=== PATIENT | female | born 1975 | race Caucasian/White ===

== ENCOUNTER 2016-12-29 09:56 | Emergency (ER) | payer MEDICARE, OTHER ==
[~2016-12-29] VITALS: Ht 167.6 cm; Wt 81.2 kg
[2016-12-29 10:28] VITALS: BP 102/65
[2016-12-29] MEDS ORDERED: DIPHTH,PERTUSS(ACELL),TET TOX 0.5 ML DISP.SYRIN. VAX IM ONE (11:00)
[2016-12-29] MEDS ORDERED: CLIN150C14 PO (11:04)
[2016-12-29] MEDS ORDERED: PRED50TA PO (11:04)
--- NOTE | 2016-12-29 11:05 | PHYS DOC ---
Past Medical History Past Medical History: Bipolar Additional Past Medical Histor: SEASONAL ALLERGIES Past Surgical History: Cholecystectomy, Hysterectomy Additional Past Surgical Histo: (R) KNEE, Alcohol Use: None Drug Use: None Adult General Chief Complaint Chief Complaint: INSECT BITE HPI HPI Patient is a 41 year old female who presents complaining of spider bite to the left upper arm. Patient states she got bit by a brown spider 3 days ago. Patient denies any fever. Tetanus is not up-to-date. Review of Systems Review of Systems Constitutional: Denies fever or chills [] Eyes: Denies change in visual acuity, redness, or eye pain [] HENT: Denies nasal congestion or sore throat [] Musculoskeletal: Denies back pain or joint pain [] Integument: Spider bite to the left upper extremity Neurologic: Denies headache, focal weakness or sensory changes [] Endocrine: Denies polyuria or polydipsia [] Allergies Allergies Allergies Coded Allergies Type Severity Reaction Last Updated Verified Iodinated Contrast Media - IV Dye Allergy Severe Anaphylaxis 01/08/16 No Sulfa (Sulfonamide Antibiotics) Allergy Intermediate Hives 01/08/16 No amoxicillin Allergy Intermediate Rash 01/08/16 No aspirin Allergy Intermediate Hives 01/08/16 No diphenhydramine Allergy Intermediate Hives 01/08/16 No codeine Allergy Mild Itching 01/08/16 No influenza virus vaccine, specific Allergy Mild Nausea 01/08/16 Yes ibuprofen Adverse Reaction Intermediate 01/08/16 No acetaminophen Adverse Reaction Mild 01/08/16 No Physical Exam Physical Exam Constitutional: Well developed, well nourished, no acute distress, non-toxic appearance. [] HENT: Normocephalic, atraumatic, bilateral external ears normal, oropharynx moist, no oral exudates, nose normal. [] Skin: Left upper extremity with an area of cellulitis approximately 3 x 2 cm. The area has a tiny bite obinna in the center. No drainage from the area. The area is warm and tender to touch but not fluctuant. Back: No tenderness, no CVA tenderness. [] Extremities: No tenderness, no cyanosis, no clubbing, ROM intact, no edema. [] Neurologic: Alert and oriented X 3, normal motor function, normal sensory function, no focal deficits noted. [] Psychologic: Affect normal, judgement normal, mood normal. [] Current Patient Data Vital Signs Vital Signs Date Time Temp Pulse Resp B/P (MAP) Pulse Ox O2 Delivery O2 Flow Rate FiO2 12/29/16 10:28 97.8 77 20 100 Room Air 97.8 EKG EKG [] Radiology/Procedures Radiology/Procedures [] Course & Med Decision Making Course & Med Decision Making Pertinent Labs and Imaging studies reviewed. (See chart for details) Patient has an insect bite to the left upper extremity. She believes it was a brown spider. The area has developed cellulitis. She has no fever. She'll be discharged with clindamycin, prednisone and Benadryl. She was instructed to keep the area clean and dry. Provided return precautions. Dragon Disclaimer Dragon Disclaimer This electronic medical record was generated, in whole or in part, using a voice recognition dictation system. Departure Departure Impression: Primary Impression: Cellulitis of left upper extremity Additional Impression: Spider bite Disposition: HOME, SELF-CARE Condition: STABLE Referrals: LEIDY LANGE (PCP) follow up with your doctor in 1-2 weeks Patient Instructions: Cellulitis, Spider Bite, [id number] Additional Instructions: You were seen with cellulitis of the left upper extremity from a possible spider bite. Keep the area clean and dry. Take the prescribed antibiotics until completed. You did receive a tetanus vaccine in the ED today. Come back to the ED symptoms worsen. Follow-up with your doctor in the next 7-14 days. Scripts Prednisone (PREDNISONE) 50 Mg Tablet 1 TAB PO DAILY, #5 TAB Prov: INDY GENAO APRN 12/29/16 Clindamycin Hcl (CLINDAMYCIN HCL) 150 Mg Capsule 3 CAP PO TID, #90 CAP Prov: INDY GENAO APRN 12/29/16 Problem Qualifiers Additional Impression: Spider bite Encounter type: initial encounter Injury intent: accidental or unintentional Qualified Codes: T63.301A - Toxic effect of unspecified spider venom, accidental (unintentional), initial encounter INDY GENOA APRN Dec 29, 2016 11:04
== END 2016-12-29 11:17 | disposition home or self-care (01) ==
LOC: ER 09:56
DX: L03.114 Cellulitis of left upper limb (principal); T63.301A Toxic effect of unspecified spider venom, accidental (unintentional), initial encounter; F31.9 Bipolar disorder, unspecified; Z90.49 Acquired absence of other specified parts of digestive tract; Z90.710 Acquired absence of both cervix and uterus; Z91.041 Radiographic dye allergy status; Z88.6 Allergy status to analgesic agent; Z88.2 Allergy status to sulfonamides; Z88.1 Allergy status to other antibiotic agents; Z88.8 Allergy status to other drugs, medicaments and biological substances; Z88.7 Allergy status to serum and vaccine; Y92.89 Other specified places as the place of occurrence of the external cause
CPT/HCPCS: 90471; 90715; 99283-25

== ENCOUNTER 2019-07-02 15:18 | Emergency (ER) | payer MEDICARE, MEDICAID ==
[~2019-07-02] VITALS: Ht 167.6 cm; Wt 81.2 kg
[~2019-07-02 15:18] MED LIST: CLIN150C14 PO; PRED50TA PO
[2019-07-02 16:00] VITALS: BP 121/84
[2019-07-02] MEDS ORDERED: ORPHENADRINE CITRATE 60 MG/2 ML VIAL. IM STA (16:23)
--- NOTE | 2019-07-02 16:28 | PHYS DOC ---
Past Medical History Past Medical History: Bipolar Additional Past Medical Histor: SEASONAL ALLERGIES Past Surgical History: Cholecystectomy, Hysterectomy Additional Past Surgical Histo: (R) KNEE, Alcohol Use: None Drug Use: None Adult General Chief Complaint Chief Complaint: BACK PAIN OR INJURY HPI HPI Patient is a 44 year old female who presents with back pain since last night. 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 She states she was working her back started hurting. Rates her pain as 8 out of 10 in severity. The patient states she is on a muscle relaxer at home. She is on baclofen. She states that she is immune to baclofen however. Review of Systems Review of Systems Constitutional: Denies fever or chills [] Eyes: Denies change in visual acuity, redness, or eye pain [] HENT: Denies nasal congestion or sore throat [] Respiratory: Denies cough or shortness of breath [] Cardiovascular: No additional information not addressed in HPI [] GI: Denies abdominal pain, nausea, vomiting, bloody stools or diarrhea [] : Denies dysuria or hematuria [] Musculoskeletal: Reports back pain Integument: Denies rash or skin lesions [] Neurologic: Denies headache, focal weakness or sensory changes [] Endocrine: Denies polyuria or polydipsia [] Complete systems were reviewed and found to be within normal limits, except as documented in this note. Current Medications Current Medications Current Medications Medications (Trade) Dose Ordered Sig/[facility] Start Time Stop Time Status Last Admin Dose Admin Orphenadrine Citrate (Norflex) 60 mg 1X STAT 07/02/19 16:23 07/02/19 16:25 DC Allergies Allergies Allergies Coded Allergies Type Severity Reaction Last Updated Verified Iodinated Contrast Media Allergy Severe Anaphylaxis 01/08/16 No Sulfa (Sulfonamide Antibiotics) Allergy Intermediate Hives 01/08/16 No amoxicillin Allergy Intermediate Rash 01/08/16 No aspirin Allergy Intermediate Hives 01/08/16 No diphenhydramine Allergy Intermediate Hives 01/08/16 No codeine Allergy Mild Itching 01/08/16 No influenza virus vaccine, specific Allergy Mild Nausea 01/08/16 Yes ibuprofen Adverse Reaction Intermediate 01/08/16 No acetaminophen Adverse Reaction Mild 01/08/16 No Physical Exam Physical Exam Constitutional: Well developed, well nourished, no acute distress, non-toxic appearance. [] HENT: Normocephalic, atraumatic, bilateral external ears normal, oropharynx moist, no oral exudates, nose normal. [] Eyes: PERRLA, EOMI, conjunctiva normal, no discharge. [] Neck: Normal range of motion, Skin: Warm, dry, no erythema, no rash. [] Back: left lower back tenderness on palpation. Neurologic: Alert and oriented X 3, normal motor function, normal sensory function, no focal deficits noted. [] Psychologic: Affect normal, judgement normal, mood normal. [] Current Patient Data Vital Signs Vital Signs Date Time Temp Pulse Resp B/P (MAP) Pulse Ox O2 Delivery O2 Flow Rate FiO2 07/02/19 16:00 98.4 61 16 121/84 (96) 99 Room Air 98.4 EKG EKG [] Radiology/Procedures Radiology/Procedures [] Course & Med Decision Making Course & Med Decision Making Pertinent Labs and Imaging studies reviewed. (See chart for details) Discussed symptoms with patient. Discussed that we can try Norflex. Also discussed that she should try non-pharmacological measures such as thermaheat and foam rollers. Dragon Disclaimer Dragon Disclaimer This electronic medical record was generated, in whole or in part, using a voice recognition dictation system. Departure Departure Impression: Primary Impression: Musculoskeletal back pain Disposition: 01 HOME, SELF-CARE Condition: STABLE Referrals: LEIDY LANGE MD (PCP) Patient Instructions: Musculoskeletal Pain Additional Instructions: Thank you for visiting [facility]. We appreciate you trusting us with your care. If any additional problems come up don't hesitate to return to visit us. Please follow up with your primary care provider so they can plan additional care if needed and know about the problem that you had. If symptoms worsen come back to the Emergency Department. Any concerning symptoms that start such as chest pain, shortness of air, weakness or numbness on one side of the body, running high fevers or any other concerning symptoms return to the ER. Please fill your medications at any pharmacy and follow the prescription instructions. Please use non-pharmacological methods such as we discussed. 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 Please also use a foam roller to help your back pain. Scripts Orphenadrine Citrate (ORPHENADRINE CITRATE) 100 Mg Tablet.er 100 MG PO BID PRN for MUSCLE PAIN for 3 Days, #6 TAB.SR Prov: DEENA HUTCHISON APRN 07/02/19 DEENA HUTCHISON APRN Jul 02, 2019 16:28
[2019-07-02] MEDS ORDERED: ORPH100T PO (16:29)
== END 2019-07-02 16:53 | disposition home or self-care (01) ==
LOC: ER 15:18
DX: M54.5 Low back pain (principal); F31.9 Bipolar disorder, unspecified; Z90.89 Acquired absence of other organs; Z90.710 Acquired absence of both cervix and uterus; Z88.2 Allergy status to sulfonamides; Z88.1 Allergy status to other antibiotic agents; Z88.6 Allergy status to analgesic agent; Z88.5 Allergy status to narcotic agent; Z88.8 Allergy status to other drugs, medicaments and biological substances; Z88.7 Allergy status to serum and vaccine
CPT/HCPCS: 96372; 99283; J2360